=== PATIENT | female | born 1975 | race Asian ===

== ENCOUNTER 2016-03-28 09:10 | Inpatient (IN) | payer BC ==
[2016-03-28] MEDS ORDERED: Sodium Chloride 0.9% 1,000 ML IV ONE ×2 (09:42→14:45)
--- NOTE | 2016-03-28 09:48 | ED Physician Chart ---
Chief Complaint/HPI - Patient Information Date Seen:: 03/28/16 Time Seen:: 09:43 Chief Complaint:: abd p History of Present Illness:: pt here for 1 hour of pain at ruq after ate Doritoes Chips for breakfast. slt nausea. had hx of GB related pain in 08/[address] but didnt complete all of f/ u advice and hasnt seen pmd in [address] visits of regular medications. eating ok lately. had tried to make GB related diet changes.... felt rt foot was a little numb this am x last hr also but has a tight shoe and has had this in past from same shoe....seems improving now. normal strength and mobility. no fever. no uri sx. no diarrhea. maybe slt constipation. has felt asthma sx acting up a bit lately/today...is using home med some. Allergies:: Allergies Allergy/AdvReac Type Severity Reaction Status Date / Time No Known Allergies Allergy Verified 03/28/16 09:24 Vitals:: Vital Signs - 8 hr 03/28/16 09:25 Temp 97.3 F HR 68 RR 16 BP 90/51 O2 Sat % 100 Historian:: Patient Review of Systems - Review of Systems General/Constitutional: No fever, No chills, No weight loss, No weakness, No diaphoresis, No edema, No loss of appetite Skin: No skin lesions, No rash, No bruising Head: No headache, No light-headedness Eyes: No loss of vision, No pain, No diplopia ENT: No earache, No nasal drainage, No sore throat, No tinnitus Neck: No neck pain, No swelling, No thyromegaly, No stiffness, No mass noted Cardio Vascular: No chest pain, No palpitations, No PND, No orthopnea, No edema Pulmonary: No SOB, No cough, No sputum, No wheezing GI: No nausea, No vomiting, No diarrhea, Pain, No melena, No hematochezia, No constipation, No hematemesis G/U: No dysuria, No frequency, No hematuria Musculoskeletal: No bone or joint pain, No back pain, No muscle pain Endocrine: No polyuria, No polydipsia Psychiatric: No prior psych history, No depression, No anxiety, No suicidal ideation Hematopoietic: No bruising, No lymphadenopathy Allergic/Immuno: No urticaria, No angioedema Neurological: No syncope, No focal symptoms, No weakness, No paresthesia, No headache, No seizure, No dizziness, No confusion, No vertigo Past Medical History - Past Medical History Past Medical History: Asthma/COPD, Other (gallstone) Social History: Non Smoker, No Alcohol, No Drug Use Medication: Reviewed Family Medical History - Family Member Daughter History Unknown: Yes Physical Exam - Physical Examination General/Constitutional: Awake, Well-developed, well-nourished, Alert, No distress, GCS 15, Non-toxic appearing, Ambulatory Head: Atraumatic Eyes: Lids, conjuctiva normal, PERRL, EOMI Skin: Nl inspection, No rash, No skin lesions, No ecchymosis, Well hydrated, No lymphadenopathy ENMT: External ears, nose nl, Nasal exam nl, Lips, teeth, gums nl Neck: Nontender, Full ROM w/o pain, No JVD, No nuchal rigidity, No bruit, No mass, No stridor Respiratory: Nl effort/Exclusion, Clear to Auscultation, No Wheeze/Rhonchi/Rales Cardio Vascular: RRR, No murmur, gallop, rubs, NL S1 S2 GI: No tenderness/rebounding/guarding, No organomegaly, No hernia, Normal BS's, Nondistended, No mass/bruits, No McBurney tenderness Other GI comments:: mild tndr at rt uq. no mass. no guarding. no rebound , no weaver sx. : No CVA tenderness Extremities: No tenderness or effusion, Full ROM, normal strength in all extremities, No edema, Normal digits & nails Neuro/Psych: Alert/oriented, DTR's symmetric, Normal sensory exam, Normal motor strength, Judgement/insight normal, Mood normal, Normal gait, No focal deficits Other Neuro/Psych comments:: no defecit in str/senation by PE. Misc: normal gait, Normal back, No paraspinal tenderness Labs/Radiology/EKG Results - Lab Results Results: Laboratory Tests 03/28/16 03/28/16 03/28/16 09:59 09:59 10:00 WBC 13.8 H D RBC 4.39 Hgb 10.8 L Hct 32.7 L MCV 74.5 L MCH 24.5 L MCHC Differential 32.9 RDW 15.5 Plt Count 258 MPV 10.3 Neutrophils % 80.7 H Lymphocytes % 12.0 L Monocytes % 6.4 Eosinophils % 0.8 Basophils % 0.1 Sodium 136 Potassium 3.1 L Chloride 102 Carbon Dioxide 24.8 Anion Gap 12.3 BUN 9 Creatinine 0.6 Est GFR ( Amer) > 60.0 Est GFR (Non-Af Amer) > 60.0 BUN/Creatinine Ratio 15.0 Glucose 118 H Calcium 8.9 Total Bilirubin 0.5 AST 72 H ALT 25 Alkaline Phosphatase 59 Total Protein 7.5 Albumin 4.0 Globulin 3.5 Albumin/Globulin Ratio 1.1 Lipase 53 Urine Source CLEAN C Urine Color YELLOW Urine Clarity SL. CLOUDY Urine pH 5.5 Ur Specific [place] Urine Protein >300 H Urine Glucose (UA) NEGATIVE Urine Ketones 15 H Urine Blood NEGATIVE Urine Nitrate NEGATIVE Urine Bilirubin MODERATE H Urine Ictotest NEGATIVE Urine Urobilinogen 1.0 Ur Leukocyte Esterase NEGATIVE Urine RBC 0-1 Urine WBC 0-2 Ur Epithelial Cells MANY Urine Bacteria MODERATE Urine Mucus MANY Urine Test 03/28/16 10:00 WBC RBC Hgb Hct MCV MCH MCHC Differential RDW Plt Count MPV Neutrophils % Lymphocytes % Monocytes % Eosinophils % Basophils % Sodium Potassium Chloride Carbon Dioxide Anion Gap BUN Creatinine Est GFR ( Amer) Est GFR (Non-Af Amer) BUN/Creatinine Ratio Glucose Calcium Total Bilirubin AST ALT Alkaline Phosphatase Total Protein Albumin Globulin Albumin/Globulin Ratio Lipase Urine Source Urine Color Urine Clarity Urine pH Ur Specific G[place]rie Urine Protein Urine Glucose (UA) Urine Ketones Urine Blood Urine Nitrate Urine Bilirubin Urine Ictotest Urine Urobilinogen Ur Leukocyte Esterase Urine RBC Urine WBC Ur Epithelial Cells Urine Bacteria Urine Mucus Urine Test NEGATIVE - Radiology Results Results: US abd- pos GB stones and sludge w wall thickening and dilated CBD ED Septic Shock - . Is Septic Shock (SBP<90, OR Lactate>4 mmol\L) present?: No - <6hrs of presentation: Vital Signs: Vital Signs - 8 hr 03/28/16 09:25 Temp 97.3 F HR 68 RR 16 BP 90/51 O2 Sat % 100 Reassessment (Disposition) - Reassessment Reassessment:: case dw Dr Crawford...will admit. is giving orders to RN. Reassessment Condition:: Improved - Diagnosis Diagnosis:: cholelithiasis w acute cholecysteitis - Patient Disposition Admitted to:: Med/Surg Condition at Disposition:: Improved
[2016-03-28] MEDS ORDERED: Albuterol Nebulizer 2.5mg/3mL HHN STA (10:08)
[2016-03-28 10:09] LABS: % BASOPHILS 0.1 % (0.0-2.0); % EOSINOPHILS 0.8 % (0.0-5.0); % MONOCYTES 6.4 % (2.0-10.0); % NEUTROPHILS 80.7 % (40.0-80.0); HEMATOCRIT 32.7 % (35.0-45.0); HEMOGLOBIN 10.8 gm/dL (11.7-15.5); MEAN CELL VOLUME 74.5 fl (81-100); MEAN CORPUSCULAR HEMOGLOBIN 24.5 pg (27.0-31.0); MEAN CORPUSCULAR HGB CONC 32.9 pg (28.0-36.0); MEAN PLATELET VOLUME 10.3 fl; NEUTROPHILE ABSOLUTE 11.1 Th/cmm (1.8-8.0); PLATELET COUNT 258 Th/cmm (150-400); RED BLOOD COUNT 4.39 Mil/cmm (3.80-5.10); RED CELL DISTRIBUTION WIDTH 15.5 % (11.5-20.0)
[2016-03-28 10:11] LABS: WHITE BLOOD COUNT 13.8 Th/cmm (4.8-10.8)
[2016-03-28] MEDS ORDERED: Albuterol Nebulizer 2.5mg/3mL HHN ONE (10:12)
[2016-03-28 10:14] LABS: URINE BILIRUBIN MODERATE (NEGATIVE); URINE COLOR YELLOW; URINE GLUCOSE (UA) NEGATIVE (NEGATIVE); URINE KETONE 15 mg/dL (NEGATIVE)
[2016-03-28 10:15] LABS: URINE BLOOD NEGATIVE (NEGATIVE); URINE PH 5.5; URINE PROTEIN >300 mg/dL (NEGATIVE)
[2016-03-28 10:19] LABS: URINE BACTERIA MODERATE /hpf (NONE SEEN); URINE EPITHELIAL CELLS MANY /lpf (FEW); URINE RBC 0-1 /hpf (0-5); URINE WBC 0-2 /hpf (0-5)
[2016-03-28 10:20] LABS: ALB/GLOB RATIO 1.1 (1.0-1.8); ALKALINE PHOSPHATASE 59 U/L (34-104); ANION GAP 12.3 (7.0-16.0); BILIRUBIN,TOTAL 0.5 mg/dL (0.3-1.0); BUN - UREA NITROGEN 9 mg/dL (7-25); CALCIUM SERUM 8.9 mg/dL (8.6-10.3); CARBON DIOXIDE 24.8 mEq/L (21.0-31.0); CHLORIDE 102 mEq/L (98-107); CREATININE - SERUM 0.6 mg/dL (0.6-1.2); GLUCOSE 118 mg/dL (70-105); LIPASE 53 U/L (11-82); POTASSIUM SERUM 3.1 mEq/L (3.5-5.1); SGOT 72 U/L (13-39); SGPT/ALT 25 U/L (7-52); SODIUM SERUM 136 mEq/L (136-145)
--- NOTE | 2016-03-28 12:01 | Diagnostic Imaging Report ---
Abdominal ultrasound HISTORY: Pain The liver appears somewhat generous in size. No focal lesions. Exam the gallbladder demonstrates multiple intraluminal echogenic densities with acoustic shadowing. Findings consistent with cholelithiasis. The largest measures approximately 2.4 cm. Common bile duct is dilated (9 mm). No abnormality seen in the region of the pancreas. No focal renal lesions. No hydronephrosis. No other retroperitoneal or intra-abdominal abnormalities. IMPRESSION: 1. Findings consistent with cholelithiasis 2. Dilated common bile duct (9 mm).
[2016-03-28 14:03] LABS: INR 1.01 (0.5-1.4)
[2016-03-28] MEDS ORDERED: Neostigmine 10mg/10mL Vial IV ONE (14:45)
[2016-03-28] MEDS ORDERED: D5-0.45NS 1,000 ML IV SCH (15:00)
[2016-03-28] MEDS ORDERED: Midazolam 1mg/ml 2 ml vial IV ONE (15:09)
[2016-03-28] MEDS ORDERED: Meperidine 50 mg/mL 1mL Syr ONE (15:17)
[2016-03-28] MEDS ORDERED: Lactated Ringer 1,000 ML IV SCH (15:45)
--- NOTE | 2016-03-28 15:45 | History & Physical ---
PATIENT IDENTIFICATION: A 40-year-old female. CHIEF COMPLAINT: Abdominal pain. HISTORY OF PRESENT ILLNESS: This is a 40-year-old female with no significant past medical history, presented to the Emergency Room for evaluation of right upper quadrant pain, which happened after she had Doritos chips for her breakfast. The patient's pain was 10/10. When patient arrived in the Emergency Room, the patient was worked up and noted to have cholelithiasis and with slightly dilated common bile duct. The patient had a normal amylase and lipase. The patient was advised to be admitted. PAST MEDICAL HISTORY: Remarkable for bronchial asthma. MEDICATIONS AT HOME: ProAir. ALLERGIES: Not allergic to medication. SOCIAL HISTORY: The patient lives in [facility]. The patient has no smoking cigarette, alcohol or street drug use. FAMILY MEDICAL HISTORY: Remarkable for diabetes and hypertension. REVIEW OF SYSTEMS: The patient denies any fever, chills, cough, chest pain, shortness of breath, hematemesis, hematochezia, nausea, vomiting, no history of any diarrhea, dysuria, hematuria, hematochezia, or melena. No seizure or syncopal episode. PHYSICAL EXAMINATION: GENERAL: The patient is alert, awake, oriented, lying in the bed without any acute distress. VITAL SIGNS: Temperature 99.8, pulse is 74, respiratory rate 18, blood pressure 130/70. SKIN: Warm to touch. HEENT: Normocephalic, atraumatic. Extraocular muscles are intact. Tongue was pink and coated. NECK: Supple, no JVD, no hepatojugular reflux. No lymphadenopathy, thyromegaly or carotid bruit. HEART: Both heart sounds are regular. No S3, no S4, no murmur. CHEST: Lung equal in expansion, no wheezing, no crackles. ABDOMEN: Soft. No guarding, no rigidity. Liver and spleen not palpable. Right upper quadrant tenderness noted. Bowel sounds are present. EXTREMITIES: No edema, no cyanosis. NEUROLOGIC: Nonfocal. AVAILABLE DIAGNOSTIC DATA: MAR has been reviewed. CLINICAL IMPRESSION: 1. Symptomatic cholelithiasis and cholecystitis. 2. Asthma by history. PLAN: 1. Admit this patient to Med/Surg floor. 2. IV antibiotic. 3. NPO. 4. Surgical consult. 5. Symptoms management. 6. Follow up lab. 7. General nursing care. 8. Follow consult recommendations. 9. Care plan reviewed and discussed with staff. JOB# [id number]
[2016-03-28] MEDS ORDERED: Neostigmine 10mg/10mL Vial ONE (15:54)
--- NOTE | 2016-03-28 16:17 | Diagnostic Imaging Report ---
Pelvic ultrasound HISTORY: Pain The exam is limited transabdominal sonographic technique. There is a normal uterine size (8.2 x 4.1 x 5.7 cm). The uterus is retroverted. No focal myometrial lesions. The endometrium is thickened (1.4 cm). The right ovary measures 2.3 x 2.0 x 2.1 cm. No abnormal masses. Left ovary is mildly enlarged (4.2 x 2.9 x 2.7 cm. This is associated with a 2.9 cm cyst. No free fluid in the pelvis. IMPRESSION: 1. Mild left ovarian enlargement associated with a 2.9 cm cyst. If necessary, a follow-up exam would provide assessment of a physiologic basis. 2. Thickened endometrium (1.4 cm). The finding should be correlated clinically and with the menstrual status.
[2016-03-28] MEDS ORDERED: Meperidine 25 mg/mL 1mL Syr ONE (16:22)
[2016-03-28] MEDS: Meperidine 25 mg/mL 1mL Syr IVP PRN ×2 (16:23→17:51)
[2016-03-28] MEDS: Ampicillin Sodium/Sulbactam 3 GM in Sodium Chloride 0.9% 100 ML IV SCH (18:05)
--- NOTE | 2016-03-28 18:31 | Consultation ---
SURGICAL CONSULTATION REFERRING PHYSICIAN: Dr. Crawford. REASON FOR CONSULTATION: Abdominal pain. Thank you for referring this patient to me. HISTORY OF PRESENT ILLNESS: This is a 40-year-old female who came in to the ER because of abdominal pain starting just prior to coming to the ER. Apparently, she had Doritos chips, had nausea, and severe pain in the right upper quadrant. She was diagnosed with gallstones in July 2015. PAST MEDICAL HISTORY: Unremarkable. Question of asthma and COPD. LABORATORY STUDIES: The CBC shows a slight elevation of WBC to 13,800, hemoglobin 10.8, and platelet count is normal. Liver function tests are within normal limits. Ultrasound of the abdomen showed multiple gallstones. PHYSICAL EXAMINATION: There is tenderness in right upper quadrant. No scars from previous surgery in the abdomen. IMPRESSION: Calculous cholecystitis. PLAN: Informed consent discussed with the patient regarding performing laparoscopic versus open cholecystectomy. Complications related to the procedure were also discussed, and the patient understands. [facility]# [id number]
--- NOTE | 2016-03-28 19:03 | Operative Report ---
PREOPERATIVE DIAGNOSIS: Calculous cholecystitis. POSTOPERATIVE DIAGNOSIS: Calculous cholecystitis. OPERATION: Laparoscopic cholecystectomy. SURGEON: Chang Roldan M.D. ANESTHESIA: General. ANESTHESIOLOGIST: Viri Iglesias M.D. ESTIMATED BLOOD LOSS: 5 mL. OPERATIVE FINDINGS: Inflamed gallbladder with a large stone at the fundus measuring about 2 cm. PROCEDURE: The patient was given general anesthesia. The abdomen was prepped with ChloraPrep and draped in appropriate manner. An infraumbilical incision was made along the skin line. A Veress needle was inserted. Insufflation of CO2 was carried out successfully. A 10-mm trocar was placed through this and a scope was introduced. There was good visualization of the intraabdominal cavity. Another 10-mm trocar was placed in the upper abdomen at the midline and two 5-mm trocars were placed in the right flank. The operating table was elevated at the head and turned to the left side. The fundus and infundibulum of the gallbladder was grasped and blunt dissection was carried out at the infundibulum stripping away the soft edematous tissues until the structures were identified. The cystic artery was first identified. This was clipped twice distally and once proximally and divided. The cystic artery was next identified, clipped three times distally and once proximally and divided. Cautery dissection with hemostasis was done superiorly until the gallbladder was removed. Irrigation with saline solution showed good hemostasis. The gallbladder was removed with an Endobag. The trocar sites were injected with 0.5% Marcaine with epinephrine and the incision was closed with subcuticular suture of 4-0 Vicryl. The patient tolerated the procedure well. [facility]# [id number]
[2016-03-28] MEDS ORDERED: Acetaminophen 500 MG TAB PO PRN (20:23)
[2016-03-28] MEDS: Meperidine 50 mg/mL 1mL Syr IVP PRN (20:49)
[2016-03-28] MEDS ORDERED: POTASSIUM PHOSPHATE IV ONE (21:00)
[2016-03-28] MEDS ORDERED: SODIUM CHLORIDE IV ONE (21:00)
[2016-03-29] MEDS: Ampicillin Sodium/Sulbactam 3 GM in Sodium Chloride 0.9% 100 ML IV SCH ×4 (00:48→17:12)
[2016-03-29] MEDS: Meperidine 50 mg/mL 1mL Syr IVP PRN ×3 (01:30→17:18)
[2016-03-29] MEDS: Meperidine 25 mg/mL 1mL Syr IVP PRN (01:46)
[2016-03-29 05:39] LABS: HEMATOCRIT 30.6 % (35.0-45.0); MEAN CELL VOLUME 74.4 fl (81-100); MEAN CORPUSCULAR HEMOGLOBIN 24.3 pg (27.0-31.0); MEAN CORPUSCULAR HGB CONC 32.7 pg (28.0-36.0); MEAN PLATELET VOLUME 10.1 fl; PLATELET COUNT 227 Th/cmm (150-400); RED BLOOD COUNT 4.12 Mil/cmm (3.80-5.10); RED CELL DISTRIBUTION WIDTH 15.3 % (11.5-20.0); WHITE BLOOD COUNT 12.1 Th/cmm (4.8-10.8)
[2016-03-29 06:07] LABS: ALB/GLOB RATIO 1.1 (1.0-1.8); ALKALINE PHOSPHATASE 63 U/L (34-104); ANION GAP 7.8 (7.0-16.0); BILIRUBIN,TOTAL 0.4 mg/dL (0.3-1.0); BUN - UREA NITROGEN 4 mg/dL (7-25); CALCIUM SERUM 7.9 mg/dL (8.6-10.3); CARBON DIOXIDE 24.7 mEq/L (21.0-31.0); CHLORIDE 107 mEq/L (98-107); CREATININE - SERUM 0.5 mg/dL (0.6-1.2); GLUCOSE 107 mg/dL (70-105); POTASSIUM SERUM 3.5 mEq/L (3.5-5.1); SGOT 166 U/L (13-39); SGPT/ALT 133 U/L (7-52); SODIUM SERUM 136 mEq/L (136-145)
[2016-03-29 07:50] LABS: BAND NEUTROPHILE 5 % (0-10); EOSINOPHIL 1 % (0-5); MICROCYTOSIS 2+; NEUTROPHILS 74 % (40-80); TOTAL CELLS COUNTED 100
[2016-03-29 07:51] LABS: PLATELET ESTIMATE ADEQUATE (NORMAL); PLATELET MORPHOLOGY GIANT PLATELETS SEEN (NORMAL)
[2016-03-30] MEDS: Ampicillin Sodium/Sulbactam 3 GM in Sodium Chloride 0.9% 100 ML IV SCH ×2 (00:18→05:37)
--- NOTE | 2016-03-30 00:24 | Admit Criteria Form ---
Admit Criteria Forms - Admit Criteria Diagnosis: GALLBLADDER OR BILE DUCT INFLAMMATION OR STONE Clinical Indications for Admission to Inpatient Care ( Place 'X' for any and all applicable criteria): Admission is indicated for patients with ANY ONE of the following(1)(2)(3)(4)(5) : [ X]I. Acute cholecystitis as indicated by ALL of the following: [X ]a) Right upper quadrant pain, mass, or tenderness [X ]b) Systemic signs of inflammation indicated by ANY ONE of the following: [ ]i) Fever [ ]ii) C-reactive protein level greater than 10 mg/L (95 nmol/L) [ X]iii) White blood cell count greater than 10,000/mm3 (10 x109/L) or less than 4000/mm3 (4 x109/L) [ ]II. Inpatient admission required rather than observation care (Also use Gallbladder or Bile Duct Inflammation or Stone: Observation Care as appropriate) because of ANY ONE of the following: [ ]a) Common bile duct obstruction diagnosed [ ]b) Vomiting that is severe or persistent [ ]c) Severe pain requiring acute inpatient management [ ]d) Signs of intestinal obstruction or peritonitis [A] [ ]e) Severe electrolyte abnormalities requiring inpatient care [ ]f) Absent bowel sounds with complete ileus(8) [ ]g) Hemodynamic instability [ ]h) High fever or infection requiring inpatient admission as indicated by ANY ONE of the following (9): [ ]1) Appropriate outpatient or observation care antimicrobial Treatment. unavailable, not effective, or not feasible [ ]2) Temperature greater than 104.9 degrees F (40.5 degrees C) (oral) [ ]3) Temperature greater than 103.1 degrees F (39.5 degrees C) (oral) or less than 96.8 degrees F (36 degrees C) (rectal) that does not respond to all emergency treatment measures [ ]4) Documented bacteremia [ ]i) IV fluid to replace significant ongoing losses (greater than 3 L/m2 per day) [ ]j) Percutaneous or open drainage (eg, abscess, biliary tract) procedures [ ]k) Immediate inpatient surgery [ ]l) Other condition, treatment or monitoring requiring inpatient admission [ ]III. Acute cholangitis as indicated by ALL of the following(9)(10): [ ]a) Systemic signs of inflammation indicated by ANY ONE of the following: [ ]i) Fever [ ]ii) C-reactive protein level greater than 10 mg/L (95 nmol /L) [ ]iii) White blood cell count greater than 10,000/mm3 (10 x109/L) or less than 4000/mm3 (4 x109/L) [ ]b) Evidence of common bile duct disease indicated by ANY ONE of the following: [ ]i) Total serum bilirubin level greater than or equal to 2 mg/dL (34 micromoles/L) [ ]ii) Liver function test (alkaline phosphatase (ALP), r- glutamyltransferase (GGT), aspartate aminotransferase (AST), or alanine aminotransferase (ALT)) greater than 1.5 times the upper limit of normal[B] [ ]iii) Hepatobiliary imaging showing biliary dilatation or evidence of etiology (eg, stricture, stone, previously placed stent) Extended stay beyond goal length of stay may be needed for (1)(2)): [ ]a) Bacteremia or Hemodynamic instability [ ]b) Cholecystectomy [ ]c) Other surgical procedure(24) [ ]d) Percutaneous or endoscopic ultrasound-guided cholecystostomy The original [email or web address] content created by [facility] [employer] has been revised. The portions of the content which have been revised are identified through the use of italic text or in bold, and [facility] has neither reviewed nor approved the modified material. All other unmodified content is copyright [facility]. Please see references footnoted in the original [facility] edition 2016 Admit Criteria Met?: Yes
[2016-03-30 05:49] LABS: % BASOPHILS 0.4 % (0.0-2.0); % EOSINOPHILS 3.2 % (0.0-5.0); % LYMPHOCYTES 12.7 % (20.0-50.0); % MONOCYTES 10.9 % (2.0-10.0); % NEUTROPHILS 72.8 % (40.0-80.0); HEMOGLOBIN 9.9 gm/dL (11.7-15.5); MEAN CELL VOLUME 74.5 fl (81-100); MEAN CORPUSCULAR HEMOGLOBIN 24.6 pg (27.0-31.0); MEAN CORPUSCULAR HGB CONC 33.1 pg (28.0-36.0); MEAN PLATELET VOLUME 10.4 fl; NEUTROPHILE ABSOLUTE 7.4 Th/cmm (1.8-8.0); PLATELET COUNT 218 Th/cmm (150-400); RED BLOOD COUNT 4.02 Mil/cmm (3.80-5.10); RED CELL DISTRIBUTION WIDTH 15.4 % (11.5-20.0); WHITE BLOOD COUNT 10.1 Th/cmm (4.8-10.8)
[2016-03-30 05:59] LABS: ALB/GLOB RATIO 1.1 (1.0-1.8); ALKALINE PHOSPHATASE 59 U/L (34-104); ANION GAP 7.3 (7.0-16.0); BILIRUBIN,TOTAL 0.4 mg/dL (0.3-1.0); BUN - UREA NITROGEN 4 mg/dL (7-25); CARBON DIOXIDE 25.9 mEq/L (21.0-31.0); CHLORIDE 107 mEq/L (98-107); CREATININE - SERUM 0.5 mg/dL (0.6-1.2); GLUCOSE 92 mg/dL (70-105); POTASSIUM SERUM 3.2 mEq/L (3.5-5.1); SGOT 67 U/L (13-39); SGPT/ALT 87 U/L (7-52); SODIUM SERUM 137 mEq/L (136-145)
--- NOTE | 2016-03-31 07:31 | Pathology Report ---
[id number] Collection date: 03/28/2016 Surgeon: Dr. Kd Downing Specimen description: Gallbladder. Gross description: Received in formalin is a 7.5 x 2.5 x 2.0 cm oval gallbladder with a smooth glistening [place] outer surface. Opening the gallbladder reveals multiple yellow-green gallstones measuring up to 2.0 cm in greatest dimension. The gallbladder mucosa has a velvety greenish texture with the gallbladder wall ranging from 0.2 to 0.3 cm in thickness. [employer] sections are submitted in one cassette. Gross pathologic diagnosis: Cholelithiasis, gallbladder. Microscopic description: The histologic sections show gallbladder wall and mucosa with chronic inflammation present consisting of lymphocytes and plasma cells. Diagnosis: Chronic cholecystitis, gallbladder. [facility]# [id number] MTDD
--- NOTE | 2016-04-05 20:16 | Discharge Summary ---
PRINCIPAL DIAGNOSES: 1. Acute cholelithiasis and cholecystitis, required laparoscopic cholecystectomy. 2. Microcytic hypochromic anemia. 3. Postoperative pain. 4. Debility. BRIEF STATEMENT FOR THE REASON FOR ADMISSION: This is a 40-year-old [place] female presented to Emergency Room for abdominal pain evaluation. After being evaluated in the Emergency Room, the patient was noted to have symptomatic cholelithiasis and cholecystitis. The patient was admitted. Please refer to my dictated medical H and P for further information. HOSPITAL COURSE: The patient was admitted to Med/Surg floor. IV antibiotic was given n.p.o. The patient was kept n.p.o. The patient was seen by Dr. Downing, and the patient was taken to OR. Laparoscopic cholecystectomy done. Postoperatively, the patient had abnormal liver function tests, which held her discharge next day. The patient's labs were followed which did reveal resolving trend. A decision was made that the patient will be discharged to home. The patient was discharged home in stable condition with outpatient followup with myself and surgeon in 1 week. At the time of discharge, the patient was given Motrin for the pain. The patient was advised to go to Emergency Room if the patient has symptoms of increasing abdominal pain, nausea, vomiting, fever, or chills. [facility]# [id number]
== END 2016-03-30 11:05 | disposition home or self-care (01) | DRG 419 ==
LOC: ER 09:10 → MSI 11:30
PROVIDERS: ADMIT Internal Medicine; ATTEND Internal Medicine
PROC: 0FT44ZZ Resection of Gallbladder, Percutaneous Endoscopic Approach (ICD-10-PCS; principal; 2016-03-28)
DX: K80.10 Calculus of gallbladder with chronic cholecystitis without obstruction (principal); J44.9 Chronic obstructive pulmonary disease, unspecified; J45.909 Unspecified asthma, uncomplicated; Z83.3 Family history of diabetes mellitus; Z82.49 Family history of ischemic heart disease and other diseases of the circulatory system
CPT/HCPCS: 36415-UA; 76700-TC; 76856-TC; 80053-TC; 81001-TC; 81025-TC; 82948-90; 83690-TC; 85007-TC; 85025-TC; 85027-TC; 85610-TC; 88304-TC; 90782; 90799; 93005; 94640; 94760; C9113; J0295; J2001; J2250; J2405; J2704; J2710; J7030; J7613; X6024; X6026; X6258; Z7610

== ENCOUNTER 2016-09-19 21:36 | Emergency (ER) | payer BC ==
[2016-09-19] MEDS ORDERED: Albuterol/Ipratropium Neb 3 ML AERS HHN ONE ×2 (21:40→22:04)
[2016-09-19] MEDS ORDERED: Dexamethasone Sodium Phos 4 mg/mL Vial IVP STA (21:40)
--- NOTE | 2016-09-19 21:40 | ED Physician Chart ---
Chief Complaint/HPI - Patient Information Date Seen:: 09/19/16 Time Seen:: 21:39 Chief Complaint:: shortness of breath History of Present Illness:: 40-year-old female, history of asthma, complains of acute, constant, worsening, moderate to severe, sensation of shortness of breath 2 weeks. Has been using Symbicort and Proair inhalers but symptoms have been getting worse. Has some associated anxiety. Denies numbness, tingling, lightheadedness, syncope, chest pain, palpitations, nausea, vomiting, abdominal pain, dysuria, gross hematuria, gross blood in stool, diarrhea. Allergies:: Allergies Allergy/AdvReac Type Severity Reaction Status Date / Time No Known Allergies Allergy Verified 03/28/16 09:24 Historian:: Patient Review:: Nurse's Note Reviewed Review of Systems - Review of Systems Other: Complete system review otherwise unremarkable except as noted in history of present illness. Past Medical History - Past Medical History Past Medical History: Asthma/COPD Family History: None Social History: Non Smoker, No Alcohol, No Drug Use, Employed Surgical History: Cholecystectomy Psychiatricy History: None Medication: Reviewed Family Medical History - Family Member Daughter History Unknown: Yes Physical Exam - Physical Examination Other:: INITIAL VITAL SIGNS: Reviewed by me GENERAL: Alert and interactive. No acute distress HEAD: Head is normocephalic and atraumatic EYES: EOMI. PERRL. No scleral icterus. No conjunctival injection ENT: Moist mucous membranes. NECK: Supple. No masses. Full range of motion RESPIRATORY: No tachypnea. Prolonged respiratory phase bilaterally, Deep Inspiration, Otherwise Clear Breath Sounds with no wheezing, rales, or rhonchi CV: Regular rate and rhythm. No murmurs, rubs, or gallops ABDOMEN: Soft, non-distended, non-tender. No guarding. No rebound. No masses. EXTREMITIES: No deformity. No cyanosis. No edema. SKIN: Warm and dry. No obvious rashes. NEUROLOGIC: Alert and oriented. Face is symmetric. Speech is normal. Moves all extremities equally. Motor and sensory distally intact. ED Septic Shock - . Is Septic Shock (SBP<90, OR Lactate>4 mmol\L) present?: No Reassessment (Disposition) - Reassessment Reassessment:: Patient has worsening shortness of breath 2 weeks. Has associated cough. Has underlying asthma. She is using her inhalers but symptoms are getting worse. She is not tachypneic and she is satting well. No wheezing. Gave Decadron and DuoNeb. Symptoms greatly improved. We'll cover with Z-Deon given underlying asthma. Recommend follow-up primary care 1-2 days. Return precautions are given. Patient says she understands and agrees with the plan. Blood pressure was noted to be elevated over 120/80. There were no signs of hypertension. Discussed the findings with the patient and recommended that the patient follow up with the primary care physician regarding the elevated blood pressure. Reassessment Condition:: Improved - Diagnosis Diagnosis:: Acute asthma exacerbation Elevated blood pressure without diagnosis of hypertension - Aftercare/Follow up Instructions Aftercare/Follow-Up Instructions:: Counseled pt regarding lab results/diagnosis & need follow up, Refer to Discharge Instructions Medication Prescribed:: Azithromycin - Patient Disposition Discharge/Transfer:: Home Time:: 22:39 Condition at Disposition:: Improved ED Discharge Plan - Patient Disposition Admit/Discharge/Transfer: PT DISCHARGED HOME Condition at Disposition: Improved Instructions: Asthma, Adult
[2016-09-19] MEDS ORDERED: Dexamethasone Sodium Phos 10 mg/mL PF Vial ONE (21:47)
== END 2016-09-19 22:55 | disposition home or self-care (01) ==
LOC: ER 21:36
DX: J45.901 Unspecified asthma with (acute) exacerbation (principal); R03.0 Elevated blood-pressure reading, without diagnosis of hypertension; J44.9 Chronic obstructive pulmonary disease, unspecified; Z90.49 Acquired absence of other specified parts of digestive tract
CPT/HCPCS: 94640; 96374; Z7502